=== PATIENT | female | born 1935 | race Caucasian/White ===

== ENCOUNTER → 2019-12-16 09:17 | Outpatient (REF) | payer MEDICARE, SELFPAY ==
--- NOTE | 2019-12-16 | NM_ITS ---
Lexiscan Myocardial perfusion study Indication: Shortness of breath, history of nonobstructive coronary disease, assess for ischemia Technique: The patient was brought in for a Lexiscan perfusion study on 12/16/2019 and was injected 0.4 mg of Lexiscan intravenously. Within a minute of this injection 30 mCi of sestamibi was given intravenously. Images were obtained using the SPECT gamma camera interlaced with the gating device. Images were obtained in supine position. Resting perfusion study was performed on 12/17/2019. Patient was administered 30 mCi of sestamibi intravenously at rest. Images were then obtained in supine position. Total DLP 83mGy-cm. Images were processed with the software and compared side to side in short axis, horizontal long axis and vertical long axis views. Findings: Raw acquisition was reviewed. Left arm was by the patient's side. The stress perfusion study showed mildly decreased tracer uptake along the basal inferolateral wall. With CT attenuation correction, this improves significantly suggestive of soft tissue attenuation artifact. The gated study shows normal LV systolic function with calculated LVEF of > 75%. LV cavity is normal in size. The gated study shows normal wall thickening and contraction of segments. Resting study shows no significant perfusion abnormality. Gating at rest reveals normal wall motion with ejection fraction at > 75%. The findings are consistent with no definite reversible or fixed perfusion abnormality. NM/NM tung perf SPECT rest & str Impression: 1. Myocardial perfusion imaging study shows likely normal myocardial perfusion. No definitive evidence of any ischemia or infarction. 2. Gated LVEF is > 75%. 3. Transient ischemic dilatation not present. EKG component of the test reported separately.
--- NOTE | 2019-12-16 09:30 | CA_ITS ---
Acquisition Time: 2019-12-16 09:27:52 Total Exercise Time: 00:02:00 Test Indications: Abnormal Treadmill Test Medications: CARDIZEM FUROSEMIDE LOSARTAN LEVOTHYROXINE METOPROLOL ELIQUIS Protocol: LEXISCAN Max HR: 110 BPM 81% of Pred: 135 BPM Max BP: 128/073 mmHG Max Work Load: 1.0 METS Pharmacological stress test using Lexiscan while sitting and kicking her feet. Tolerated well. Reports SOB, and no other anginal sx. Pt c/o frontal lobe headache, sx reversed with Aminophyline. EKG with occasional PVC's. Non-diagnostic for ischemia. Nuclear images to follow. Normotensive response to test. Test reviewed with Dr. Larios. Referred By: Anjali Verdugo Overread By: Adin Stark
== END ==
LOC: HO.CARD 09:17
PROVIDERS: Visit Provider Nurse Practitioner Family
DX: I48.0 Paroxysmal atrial fibrillation (principal); I25.10 Atherosclerotic heart disease of native coronary artery without angina pectoris; I11.9 Hypertensive heart disease without heart failure; E78.5 Hyperlipidemia, unspecified; R06.02 Shortness of breath; Z79.02 Long term (current) use of antithrombotics/antiplatelets; Z79.899 Other long term (current) drug therapy
CPT/HCPCS: 78452; 93017; A9500; J0280; J2785

== ENCOUNTER → 2019-12-20 10:37 | Outpatient (BNVA) | payer MEDICARE, SELFPAY | PROVIDERS: PCP Internal Medicine; Referring Provider Internal Medicine; Visit Provider Nurse Practitioner Family | DX: I48.0 Paroxysmal atrial fibrillation (principal); R06.02 Shortness of breath; I25.10 Atherosclerotic heart disease of native coronary artery without angina pectoris; Z79.899 Other long term (current) drug therapy | CPT/HCPCS: 99214 ==

== ENCOUNTER 2020-05-21 09:15 | Outpatient (REF) | payer MEDICARE, SELFPAY ==
--- NOTE | ~2020-05-21 | XR_ITS ---
EXAMINATION: XR CHEST CLINICAL INFORMATION: Shortness of breath COMPARISON: 11/23/2011 TECHNIQUE: 2 views of the chest were obtained. FINDINGS: There is no evidence of acute parenchymal disease, pneumothorax, or pleural effusion. Heart normal size. No evidence of pulmonary edema. There is a 3.8 cm retrocardiac density present which may represent a small hiatal hernia; however, nodular density is not excluded and if there is no recent imaging for comparison would recommend chest CT. XR/XR chest 2V IMPRESSION: No acute inflammatory process identified. Retrocardiac density which may represent small hiatal hernia; however, density of other etiology not excluded and if there are no recent studies to compare to show if there is stability or not, would recommend CT of the chest for further evaluation.
[2020-05-21 12:31] LABS: Hematocrit 44.5 % (37-47); Hemoglobin 14.9 g/dl (12.0-16.0); Mean Corpuscular HGB Conc 33.5 g/dl (31.0-35.0); Mean Corpuscular Hemoglobin 29.4 pg (27.0-33.0); Mean Corpuscular Volume 87.8 fL (80-98); Platelet Count 276 X10*3/uL (160-400); Red Blood Count 5.07 X10*6/uL (4.20-5.50); White Blood Count 11.2 X10*3/uL (4.8-10.8)
[2020-05-21 12:50] LABS: Anion Gap 18 (12-20); Blood Urea Nitrogen 29 mg/dL (9-16); Calcium 9.5 mg/dL (8.4-10.2); Carbon Dioxide 22 mmol/L (22-29); Chloride 101 mmol/L (96-108); Estimated Glomerular Filt Rate 59; Glucose Random 99 mg/dL (60-115); Potassium 5.1 mmol/L (3.3-5.1); Sodium 136 mmol/L (135-145)
[2020-05-21 12:52] LABS: B Type Natriuretic Peptide 119 pg/mL (<100)
== END 2020-05-21 09:16 | disposition home or self-care (01) ==
LOC: HO.LAB 09:15
PROVIDERS: PCP Internal Medicine; Visit Provider Internal Medicine Cardiovascular Disease
DX: I48.0 Paroxysmal atrial fibrillation (principal); R06.02 Shortness of breath; Z79.01 Long term (current) use of anticoagulants; Z79.899 Other long term (current) drug therapy
CPT/HCPCS: 36415; 71046; 80048; 83880; 85027; 99212

== ENCOUNTER → 2020-07-08 13:55 | Outpatient (BNVA) | payer MEDICARE, SELFPAY | PROVIDERS: PCP Registered Nurse; Visit Provider Internal Medicine | DX: R06.02 Shortness of breath (principal); I48.0 Paroxysmal atrial fibrillation; E03.9 Hypothyroidism, unspecified; I25.10 Atherosclerotic heart disease of native coronary artery without angina pectoris | CPT/HCPCS: 99202 ==

== ENCOUNTER → 2020-07-10 13:54 | Outpatient (REF) | payer MEDICARE, SELFPAY ==
--- NOTE | 2020-07-10 13:59 | CA_ITS ---
Transthoracic Echocardiogram Patient (Last, First, Middle): Tiki Murdock S Gender: Female Date of : 1935 Age: 85 Procedure Date: 07/10/2020 Procedure Type: Transthoracic Echocardiogram Location: OP Height: 157.48 cm Weight: 86.64 kg BSA: 1.87 m2 Heart Rate: bpm BP: 118 / 80 mmHg Helpdesk Technician: MERVIN Referring MD: Davey Bermeo MD Symptoms: R06.02 - Shortness of breath Study Quality: Good Conclusions: - Normal left ventricular size and systolic function. There is mildly increased left ventricular wall thickness. - E/E prime ratio is between 8 and 15 consistent with indeterminate filling pressures. - Normal right ventricular cavity size and systolic function. - The left atrium is mildly dilated. Findings Left Ventricle Normal left ventricular size and systolic function. There is mildly increased left ventricular wall thickness. The visually estimated ejection fraction is between 65-70%. There is no evidence of regional wall motion abnormalities. Abnormal diastolic function is noted. Spectral Doppler is indicative of an impaired relaxation filling pattern. E/E prime ratio is between 8 and 15 consistent with indeterminate filling pressures. Right Ventricle Normal right ventricular cavity size and systolic function. Atria The left atrium is mildly dilated. The right atrium is normal in size. Aortic Valve Normal aortic valve structure and function. There is no aortic valve stenosis. There is no aortic valve regurgitation. Mitral Valve Normal mitral valve structure and function. There is trace mitral valve regurgitation. There is no mitral valve stenosis. Pulmonic Valve The pulmonic valve is likely normal. Tricuspid Valve Normal tricuspid valve structure and function. There is mild tricuspid valve regurgitation. Normal right atrial pressure. There is no evidence of pulmonary hypertension. Great Vessels There is mild dilatation of the ascending aorta. The visualized portions of the pulmonary artery and branches are normal. Venous The inferior vena cava is normal in size and collapses greater than 50% with inspiration. Pericardium/Pleural There is no evidence of pericardial effusion. Prior Study Comparison No significant change compared to prior study dated: 03/07/2019. Measurements 2D Linear Measurements IVSd: 1.05 0.6-0.9/0.6-1.0 cm LVIDd: 2.65 3.9-5.3/4.2-5.9 cm LVIDd Index: 1.42 2.4-3.2/2.2-3.1 cm/m2 LVIDs: 1.85 2.0-3.6 cm LVPWd: 1.08 0.7-1.1 cm Ao Root: 3.20 2.1-3.5 cm LA Diam: 3.10 2.7-3.8/3.0-4.0 cm LAIDs Index: 1.66 1.5-2.3 cm/m2 LV Mass: 94.23 67-162/88-224 g LV Mass Index: 50.39 43-95/49-115 g/m2 LVOT Diam: 2.20 3.0+(-)1.3 cm 2D Systolic Function EF 4C: 60.80 >55% EF 2C: 63.20 >55% Mitral Valve MV Pk E: 0.64 MV PK A: 0.75 MV Decel Time: 366.00 E/A: 0.80 E'Lateral: 6.53 E'Medial: 3.92 E/E' Med: 16.30 E/E' Lat: 9.80 PHT: 107.00 MVA PHT: 2.06 Decel [place]: 1.74 Aortic Valve AoV Pk Jose: 1.19 AoV Mn Jose: 0.83 AoV VTI: 0.28 AoV Pk Grad: 6.00 Aov Mn Grad: 3.00 BALJIT Cont.VTI: 3.22 LVOT LVOT Pk Jose: 0.97 LVOT Mn Jose: 0.62 LVOT VTI: 0.24 LVOT Pk Grad: 4.00 LVOT Mn Grad: 2.00 LVOT Diam: 2.20 LVOT Area: 3.80 Diastolic Function MV Pk E: 0.64 MV Pk A: 0.75 E/A: 0.80 E'Medial: 3.92 E/E' Med: 16.30 E' Laterial: 6.53 E/E' Lat: 9.80 Tricuspid Valve TR Pk Jose: 2.40 TR Pk Grad: 23.00 RA Press: 3.00 RVSP: 26.00 Great Vessels Aorta Ao Root-2D: 3.20 2.0-3.7 cm Ao Asc: 3.50 2.1-3.4 cm Ao Arch: 2.80 Updated in Other Vendor System with Status of Final Bola Larios MD electronically signed on 07/13/2020 2:21:32 PM with status of Final
== END ==
LOC: HO.CARD 13:54
PROVIDERS: Visit Provider Internal Medicine Cardiovascular Disease
DX: R06.02 Shortness of breath (principal)
CPT/HCPCS: 93306

== ENCOUNTER → 2020-07-16 14:06 | Outpatient (BNVA) | payer MEDICARE, SELFPAY | PROVIDERS: PCP Internal Medicine; Visit Provider Internal Medicine Cardiovascular Disease | DX: I48.0 Paroxysmal atrial fibrillation (principal); R06.02 Shortness of breath | CPT/HCPCS: 99212 ==

== ENCOUNTER → 2021-01-11 09:12 | Outpatient (BNVA) | payer MEDICARE, SELFPAY | PROVIDERS: Visit Provider Internal Medicine Cardiovascular Disease | DX: I25.10 Atherosclerotic heart disease of native coronary artery without angina pectoris (principal); I48.0 Paroxysmal atrial fibrillation; R06.02 Shortness of breath | CPT/HCPCS: 93005; 99212 ==

== ENCOUNTER → 2022-03-07 14:47 | Outpatient (BNVA) | payer MEDICARE, SELFPAY | PROVIDERS: Visit Provider Internal Medicine Cardiovascular Disease | DX: I48.0 Paroxysmal atrial fibrillation (principal); I25.10 Atherosclerotic heart disease of native coronary artery without angina pectoris; Z79.01 Long term (current) use of anticoagulants; Z79.899 Other long term (current) drug therapy | CPT/HCPCS: 93005; 99212 ==

== ENCOUNTER 2023-03-09 15:04 | Outpatient (AMB) | payer MEDICARE, SELFPAY ==
--- NOTE | 2023-03-09 15:08 | MHC.OFFVIS ---
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 She has been doing very well. She denies any symptoms of exertional chest pain. However she says she has been getting low more short of breath and fatigue, she has not been exercising as much since she gave up her horses. However she is able to live independently. Denies any orthopnea, PND, leg edema. No lightheadedness, syncope. No prolonged palpitation irregular heartbeat. No bleeding issues or neurologic events. [facility] Medical History Shortness of breath Coronary artery arteriosclerosis Osteoarthritis Hypothyroid Paroxysmal A-fib HTN (hypertension) Surgical History History of cardiac cath (~11/2011) Family History Father No problems noted. Mother No problems noted. Brother No problems noted. Social History Alcohol intake: never Patient Tobacco Use Status: Never used Tobacco Review of Systems Const Denies chills, Denies fatigue, Denies fever(s), Denies frequent falls, Denies weakness, Denies weight gain and Denies weight loss ENT Denies dizziness Card Denies chest pain, Denies leg edema, Denies lightheadedness, Denies palpitations, Denies dyspnea, Denies dyspnea on exertion, Denies orthopnea and Denies other (loss of consciousness) Resp Denies cough, Denies dyspnea and Denies dyspnea on exertion GI Denies hematochezia and Denies change in stool character Musc Denies abnormal gait, Denies muscle weakness, Denies numbness, Denies radiating pain into limb and Denies tingling Neuro Denies abnormal gait, Denies dizziness, Denies frequent falls, Denies numbness, Denies tingling and Denies weakness Endo Denies fatigue and Denies palpitations Physical Exam Vital Signs: Last Vital Signs Pulse 78 03/09/23 15:09 BP 120/82 03/09/23 15:09 BMI result Body Mass Index 34.3 Const General: cooperative, comfortable, no acute distress, alert and awake Nutritional Appearance: obese Orientation/consciousness: patient oriented x3 Limitations: no limitations Neck Neck: Yes trachea midline, Yes supple and Yes no JVD Resp Effort & Inspection: normal respiratory effort Auscultation: clear to auscultation bilaterally and diminished lung sounds Cardio Jugular venous distension: no JVD Palpation: normal PMI Rate: regular rate Rhythm: regular rhythm Heart sounds: S1 normal heart sound present and S2 normal heart sound present Skin General skin exam: no rashes or lesions noted Neuro General: patient oriented x3 and no focal motor deficits Office Procedures EKG Details: EKG shows normal sinus rhythm with normal EKG [id number], Complete Assessment & Plan Assessment & Plan (1) Paroxysmal A-fib: Comment: CONTROLLED , BEING FOLLOWED BY CARDIOLOGY Code(s): I48.0 - Paroxysmal atrial fibrillation Plan: Paroxysmal atrial fibrillation currently on dual therapy with metoprolol and Cardizem with no obvious clinical recurrence at this point time. Continue the same. Avoidance of stimulants was discussed. Continue full oral anticoagulation, currently on Eliquis 5 mg b.i.d.. Semi annual renal function test should be pursued at least. Advised to call me with any new symptoms. (2) Coronary artery arteriosclerosis: Comment: mild nonobstructive in 2011 Code(s): I25.10 - Atherosclerotic heart disease of [place] coronary artery without angina pectoris Plan: Prior CAD without any new clinical symptoms that requires any further workup. Continue maintain activity level as tolerated. Blood pressure is well optimized currently on full oral anticoagulation Eliquis and will therefore avoid additional antiplatelet agent. Target goal LDL less than 100 mg/dL. Follow up in the clinic in 1 year's time, sooner p.r.n.. Thank you for allowing me to partake in her care Orders: Orders Basic Metabolic Panel Today I48.0 - Paroxysmal atrial fibrillation Coding Level of Care Code Est Pt Level 4 (16161) Diagnoses Paroxysmal A-fib I48.0 Coronary artery arteriosclerosis I25.10 CPT Codes EKG - CPT: 50888-[id number], Complete ([id number])
[2023-03-09 15:09] VITALS: BP 120/82; PULSE 78; BMI 34.3
== END 2023-03-09 15:44 | disposition home or self-care (01) ==
PROVIDERS: Visit Provider Internal Medicine Cardiovascular Disease
DX: I48.0 Paroxysmal atrial fibrillation (principal); I25.10 Atherosclerotic heart disease of native coronary artery without angina pectoris
CPT/HCPCS: 93010; 99214

== ENCOUNTER → 2023-03-09 15:04 | Outpatient (BNVA) | payer MEDICARE, SELFPAY | PROVIDERS: Visit Provider Internal Medicine Cardiovascular Disease | DX: I48.0 Paroxysmal atrial fibrillation (principal); I25.10 Atherosclerotic heart disease of native coronary artery without angina pectoris | CPT/HCPCS: 93005; 99212 ==

== ENCOUNTER 2023-04-12 14:59 | Outpatient (AMB) | payer MEDICARE, SELFPAY ==
[2023-04-12 15:02] VITALS: BP 130/70; PULSE 69; BMI 34.4
--- NOTE | 2023-04-12 15:02 | MHC.OFFVIS ---
Intake Vital Signs 04/12/23 15:02 Height 5 ft 2 in Weight 187 lb 13.341 oz BMI 34.4 BP 130/70 Blood Pressure Location Lt brachial Position Sitting Pulse 69 Intake Visit Reasons: follow-up c/o sob Intake Note: pt its here in the office for a f/up c/o SOB pt still have the sob, light headed and nausea. 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 She said over the last two weeks she has been having an increased in shortness of breath on exertion and chronic post nasal drip. States she used to be able to bring the trash out and now feels significantly short of breath with weakness. She denies any palpitations, lightheadedness, or chest pain. She has been doing physical therapy for her hips and did well with that. No concerns for bleeding at this time. [facility] Medical History Shortness of breath Coronary artery arteriosclerosis Osteoarthritis Hypothyroid Paroxysmal A-fib HTN (hypertension) Surgical History History of cardiac cath (~11/2011) Family History Father No problems noted. Mother No problems noted. Brother No problems noted. Social History Alcohol intake: never Patient Tobacco Use Status: Never used Tobacco Review of Systems Const Denies chills, Reports fatigue, Denies fever(s), Denies frequent falls, Reports weakness, Denies weight gain and Denies weight loss ENT Reports dizziness Card Denies chest pain, Denies leg edema, Reports lightheadedness, Reports palpitations, Reports dyspnea and Reports dyspnea on exertion Resp Denies cough, Reports dyspnea and Reports dyspnea on exertion GI Denies hematochezia Musc Denies abnormal gait, Denies muscle weakness, Denies numbness, Denies radiating pain into limb and Denies tingling Neuro Denies abnormal gait, Reports dizziness, Denies frequent falls, Denies numbness, Denies tingling and Reports weakness Endo Reports fatigue and Reports palpitations Physical Exam Vital Signs: Last Vital Signs Pulse 69 04/12/23 15:02 BP 130/70 04/12/23 15:02 BMI result Body Mass Index 34.4 Const General: healthy appearing and no acute distress Orientation/consciousness: patient oriented x3 HEENT Head: Yes normal to inspection Eyes General: appearance normal, both eyes and all related structures Neck Neck: Yes normal visual inspection Chest Chest palpation & inspection: normal inspection of the chest Resp Effort & Inspection: normal respiratory effort Auscultation: clear to auscultation bilaterally Cardio Jugular venous distension: no JVD Palpation: normal PMI Rate: regular rate Rhythm: regular rhythm Heart sounds: S1 normal heart sound present, S2 normal heart sound present, no click, no gallops, no murmurs and no rubs GI Inspection: Yes normal to inspection Palpation (GI): Soft to palpation Skin General skin exam: no rashes or lesions noted Neuro General: patient oriented x3 Extrem General: Yes normal to inspection Psych Appearance: grossly normal Office Procedures EKG Details: EKG today. Sinus Rhythm. Rate 69 bpm. QRS 72ms. QTc 441ms. [id number], Complete Assessment & Plan Assessment & Plan (1) Shortness of breath: Comment: WANTED TO DO PULMONARY FUNCTION TEST BUT NOTED ABOVE IN HPI, SHE WAS NOT ABLE TO PERFORM ADEQUATE EFFORTS. IT WAS MAINLY DUE TO POOR QUAD IN A BRISCOE OF EXPIRATORY EFFORT. SO WE WOULD JUST GO BY CLINICAL JUDGMENT. I DO NOT THINK SHE HAS ANY SIGNIFICANT AMOUNT OF THE COPD, BUT MAY HAVE SOME RESTRICTIVE DISORDER RELATED TO HER BEING OVERWEIGHT. HER DYSPNEA ON EXERTION THAT SHE IS EXPERIENCING MORE IN THE PAST FEW MONTHS, SEEMS TO BE DUE TO FOLLOWING FACTORS: WEIGHT GAIN, POOR PHYSICAL CONDITIONING, ATRIAL FIBRILLATION AND MILD DIASTOLIC DYSFUNCTION. TX I STARTED HER ON INCENTIVE SPIROMETRY FOR DEEP BREATHING EXERCISES. ADVISED HER TO DO BREATHING EFFORTS 3 TIMES A DAY. ADVISED HER TO LOSE ABOUT 5-10 LB OF WEIGHT. WILL RECHECK HER IN 4-5 WEEKS, AT THAT TIME WE WILL TRIED TO HAVE HER DO AN EVERY [facility] DID PULMONARY FUNCTION TEST IF POSSIBLE. Code(s): R06.02 - Shortness of breath Plan: She has seen pulmonary in the past and struggled to do the PFT. Will send her for a pharmacological stress test with nuclear images. some lab work, and echocardiogram. Her last echo was 06/2020 with normal LV size and systtolic function. mildly increase LV thickness. E/E prime ratio 8 to 15. LA midlly dilated. Mibi in 11/2019 showed likely normal myocardial perfusion. (2) Paroxysmal A-fib: Comment: CONTROLLED , BEING FOLLOWED BY CARDIOLOGY Code(s): I48.0 - Paroxysmal atrial fibrillation Plan: EKG today shows normal sinus rhythm. On eliquis 5mg BID with no bleeding concerns. She is on diltiazem and metoprolol succinate for rate control. (3) HTN (hypertension): Code(s): I10 - Essential (primary) hypertension Plan: Blood pressure today is within limits Coding Level of Care Code Tele Est Pt Level 3 (56690) Diagnoses Shortness of breath R06.02 Paroxysmal A-fib I48.0 HTN (hypertension) I10 CPT Codes EKG - CPT: 96345-[id number], Complete ([id number])
== END 2023-04-12 15:53 | disposition home or self-care (01) ==
PROVIDERS: Visit Provider Nurse Practitioner
DX: R06.02 Shortness of breath (principal); I48.0 Paroxysmal atrial fibrillation; I10 Essential (primary) hypertension
CPT/HCPCS: 93010; 99213

== ENCOUNTER → 2023-04-12 14:59 | Outpatient (BNVA) | payer MEDICARE, SELFPAY | PROVIDERS: Visit Provider Nurse Practitioner | DX: I48.0 Paroxysmal atrial fibrillation (principal); I10 Essential (primary) hypertension; R06.02 Shortness of breath | CPT/HCPCS: 93005 ==

== ENCOUNTER → 2023-05-18 08:33 | Outpatient (REF) | payer MEDICARE, SELFPAY ==
--- NOTE | ~2023-05-18 | NM_ITS ---
Myocardial perfusion study Indication: Shortness of breath Technique: The patient was brought in for a Lexiscan perfusion study on 05/18/2023. Patient performed low-level exercise and was injected 0.4 mg of Lexiscan intravenously. Within a minute of injection, 30 mCi of sestamibi was given intravenously. Images were obtained using the SPECT gamma camera interlaced with the gating device. Images were obtained in supine position. Resting perfusion study was performed on 05/22/2023. Patient was administered 30 mCi of sestamibi intravenously at rest. Images were then obtained in supine position. Images obtained with and without CT attenuation. Total DLP 123 mGy-cm Images were processed with the software and compared side to side in short axis, horizontal long axis and vertical long axis views. Findings: The stress perfusion study showed both attenuated as well as non attenuated corrected images show normal uptake of radiotracer in all segments of LV myocardium. There is suggestion of left ventricle hypertrophy.. The gated study shows normal LV systolic function with calculated LVEF of greater than 70%. LV cavity is normal in size. The gated study shows normal systolic wall thickening and contraction of segments. Resting study shows no change in perfusion pattern compared to stress perfusion study. Gating at rest reveals normal systolic wall motion with ejection fraction at greater than 70%. The findings are consistent with normal myocardial perfusion. NM/NM cardiolite stress test Impression: 1. Myocardial perfusion imaging study shows normal myocardial perfusion 2. Gated LVEF is greater than 70% 3. Transient ischemic dilatation not present EKG is nondiagnostic for ischemia
--- NOTE | 2023-05-18 08:40 | CA_ITS ---
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 The calculated ejection fraction is 71% by biplane method. - There is severe septal asymmetric hypertrophy. - No obvious valvular pathology seen on this study. Findings Left Ventricle Normal left ventricular cavity size. The left ventricular systolic function is hyperdynamic. The calculated ejection fraction is 71% by biplane method. There is no dynamic left ventricular outflow tract obstruction. Evidence suggests grade I (mild) diastolic dysfunction. There is severe septal asymmetric hypertrophy. LV peak GLS -17.6%. Right Ventricle Normal right ventricular cavity size and systolic function. Atria Both atria are normal in size. Aortic Valve There is a normal trileaflet aortic valve. There is no aortic valve stenosis. There is no aortic valve regurgitation. Mitral Valve There is mild mitral annular calcification. There is no mitral valve regurgitation. There is no mitral valve stenosis. Pulmonic Valve The pulmonic valve is likely normal. Tricuspid Valve There is mild tricuspid valve regurgitation. There is no evidence of pulmonary hypertension. Great Vessels The asc aorta is normal in size. Venous The inferior vena cava is normal in size and collapses greater than 50% with inspiration. Pericardium/Pleural There is no evidence of pericardial effusion. Prior Study Comparison No significant change compared to prior study dated: 07/10/2020. Recommendations, Care & Conclusions No obvious valvular pathology seen on this study. Measurements 2D Linear Measurements IVSd: 1.22 0.6-0.9/0.6-1.0 cm LVIDd: 3.95 3.9-5.3/4.2-5.9 cm LVIDd Index: 2.14 2.4-3.2/2.2-3.1 cm/m2 LVIDs: 2.30 2.0-3.6 cm LVPWd: 0.91 0.7-1.1 cm LA Diam: 3.70 2.7-3.8/3.0-4.0 cm LAIDs Index: 2.00 1.5-2.3 cm/m2 LV Mass: 169.88 67-162/88-224 g LV Mass Index: 91.83 43-95/49-115 g/m2 LVOT Diam: 2.10 3.0+(-)1.3 cm 2D Systolic Function EF 4C: 71.10 >55% EF 2C: 70.40 >55% EF BiP: 70.60 >55% Mitral Valve MV Pk E: 0.72 MV PK A: 1.02 MV Decel Time: 218.00 E/A: 0.70 E'Lateral: 6.74 E'Medial: 3.81 E/E' Med: 19.00 E/E' Lat: 10.70 PHT: 64.00 MVA PHT: 3.44 Decel [place]: 3.33 Aortic Valve AoV Pk Jose: 1.30 AoV Mn Jose: 1.00 AoV VTI: 0.31 AoV Pk Grad: 7.00 Aov Mn Grad: 4.00 BALJIT Cont.VTI: 2.32 LVOT LVOT Pk Jose: 1.01 LVOT Mn Jose: 0.68 LVOT VTI: 0.21 LVOT Pk Grad: 4.00 LVOT Mn Grad: 2.00 LVOT Diam: 2.10 LVOT Area: 3.46 Diastolic Function MV Pk E: 0.72 MV Pk A: 1.02 E/A: 0.70 E'Medial: 3.81 E/E' Med: 19.00 E' Laterial: 6.74 E/E' Lat: 10.70 Right Ventricle TAPSE (mm): 21.20 TVS' Jose: 10.30 Tricuspid Valve TR Pk Jose: 2.48 TR Pk Grad: 25.00 RA Press: 3.00 RVSP: 28.00 Great Vessels Aorta Sinus of Valsalva: 3.15 2.0-3.[address] [place]: 2.21 1.7-3.4 cm Ao Asc: 3.50 2.1-3.4 cm Updated in Other Vendor System with Status of Final Enzo Aiken MD electronically signed on 05/20/2023 11:10:36 AM with status of Final
--- NOTE | 2023-05-18 08:40 | CA_ITS ---
Acquisition Time: 2023-05-18 09:51:05 Total Exercise Time: 00:02:00 Test Indications: AFIB SOB Medications: SEE H Protocol: LEXISCAN Max HR: 113 BPM 85% of Pred: 132 BPM Max BP: 144/076 mmHG Max Work Load: 1.0 METS Pharmacological stress test with lexiscan injection while sititng and kicking her legs, without anginal symtpoms, without arrhythmais, with normotensive response to injeciton, with nondiagnsoitiic EKGs. Aminophylline 75mg IVP given to reverse Lexiscan. Nuclear images pending. Test reviewed with Dr. Aiken. Referred By: Cassidy Goodson Overread By: Cassidy Goodson
== END ==
LOC: HO.CARD 08:33
PROVIDERS: Visit Provider Nurse Practitioner
DX: R06.02 Shortness of breath (principal)
CPT/HCPCS: 78452; 93017; 93306; 93356; A9500; J0280; J2785

== ENCOUNTER → 2023-05-18 08:40 | Outpatient (BNV) | payer MEDICARE, SELFPAY | PROVIDERS: Visit Provider Nurse Practitioner | DX: I42.2 Other hypertrophic cardiomyopathy (principal); I34.81 Nonrheumatic mitral (valve) annulus calcification | CPT/HCPCS: 78452; 93016; 93018; 93350; 93356 ==

== ENCOUNTER 2023-06-08 12:52 | Outpatient (AMB) | payer MEDICARE, SELFPAY ==
[2023-06-08 13:12] VITALS: BP 120/68; PULSE 72; BMI 33.8
--- NOTE | 2023-06-08 13:12 | MHC.OFFVIS ---
Intake Vital Signs 06/08/23 13:12 Height 5 ft 2 in Weight 185 lb BMI 33.8 BP 120/68 Blood Pressure Location Lt brachial Position Sitting Pulse 72 Intake Visit Reasons: f/up after testing Intake Note: follow up after testing pt states is tired and has sob does not have energy while walking Allergies No Known Allergies Allergy (Verified 01/11/21 09:23) Medication List - Last Reconciled 06/08/23 by Cassidy Goodson NP acetaminophen ER (Tylenol Arthritis Pain) 650 mg PO Q12H apixaban (Eliquis) 5 mg PO BID diltiazem HCl ER 120 mg PO DAILY furosemide 20 mg PO DAILY levothyroxine 100 mcg PO DAILY losartan 100 mg PO DAILY metoprolol succinate ER 50 mg PO BID HPI HPI Comments History of Present Illness Details 88-year-old female presents today for a follow-up after testing. She reports she is doing about the same as last time. She states she is still getting short of breath easily and fatigue. She used to be much more active but since no longer tending to her houses it has decreased. She reports no palpitations, chest discomforts, bleeding concerns, or swelling. She reports compliance with her medications. [facility] Medical History Shortness of breath Coronary artery arteriosclerosis Osteoarthritis Hypothyroid Paroxysmal A-fib HTN (hypertension) Surgical History History of cardiac cath (~11/2011) Family History Father No problems noted. Mother No problems noted. Brother No problems noted. Social History Alcohol intake: never Patient Tobacco Use Status: Never used Tobacco Review of Systems Const Denies weakness ENT Denies dizziness Card Denies chest pain, Denies chest pain with activity, Denies syncope, Denies rapid heart rate, Denies pedal edema, Denies edema, Denies leg edema, Denies lightheadedness, Denies palpitations, Denies dyspnea, Denies dyspnea on exertion and Denies orthopnea Resp Denies cough, Denies dyspnea and Denies dyspnea on exertion GI Denies hematochezia and Denies change in stool character Musc Denies abnormal gait, Denies muscle cramps, Denies muscle weakness, Denies numbness, Denies radiating pain into limb and Denies tingling Neuro Denies abnormal gait, Denies dizziness, Denies syncope, Denies numbness, Denies tingling and Denies weakness Endo Denies palpitations Physical Exam Vital Signs: BMI result Body Mass Index 33.8 Const General: healthy appearing and no acute distress Orientation/consciousness: patient oriented x3 HEENT Head: Yes normal to inspection Eyes General: appearance normal, both eyes and all related structures Neck Neck: Yes normal visual inspection Chest Chest palpation & inspection: normal inspection of the chest Resp Effort & Inspection: normal respiratory effort Auscultation: clear to auscultation bilaterally Cardio Jugular venous distension: no JVD Palpation: normal PMI Rate: regular rate Rhythm: regular rhythm Heart sounds: S1 normal heart sound present, S2 normal heart sound present, no click, no gallops, no murmurs and no rubs GI Inspection: Yes normal to inspection Palpation (GI): Soft to palpation Skin General skin exam: no rashes or lesions noted Neuro General: patient oriented x3 Extrem General: Yes normal to inspection Psych Appearance: grossly normal Assessment & Plan Assessment & Plan (1) Shortness of breath: Comment: WANTED TO DO PULMONARY FUNCTION TEST BUT NOTED ABOVE IN HPI, SHE WAS NOT ABLE TO PERFORM ADEQUATE EFFORTS. IT WAS MAINLY DUE TO POOR QUAD IN A BRISCOE OF EXPIRATORY EFFORT. SO WE WOULD JUST GO BY CLINICAL JUDGMENT. I DO NOT THINK SHE HAS ANY SIGNIFICANT AMOUNT OF THE COPD, BUT MAY HAVE SOME RESTRICTIVE DISORDER RELATED TO HER BEING OVERWEIGHT. HER DYSPNEA ON EXERTION THAT SHE IS EXPERIENCING MORE IN THE PAST FEW MONTHS, SEEMS TO BE DUE TO FOLLOWING FACTORS: WEIGHT GAIN, POOR PHYSICAL CONDITIONING, ATRIAL FIBRILLATION AND MILD DIASTOLIC DYSFUNCTION. TX I STARTED HER ON INCENTIVE SPIROMETRY FOR DEEP BREATHING EXERCISES. ADVISED HER TO DO BREATHING EFFORTS 3 TIMES A DAY. ADVISED HER TO LOSE ABOUT 5-10 LB OF WEIGHT. WILL RECHECK HER IN 4-5 WEEKS, AT THAT TIME WE WILL TRIED TO HAVE HER DO AN EVERY [facility] DID PULMONARY FUNCTION TEST IF POSSIBLE. Code(s): R06.02 - Shortness of breath (2) Paroxysmal A-fib: Comment: CONTROLLED , BEING FOLLOWED BY CARDIOLOGY Code(s): I48.0 - Paroxysmal atrial fibrillation (3) HTN (hypertension): Code(s): I10 - Essential (primary) hypertension Plan Echocardiogram without significant changes from prior. Nuclear stress test shows normal myocardial perfusion. On metoprolol and diltiazem for rate control. Avoid stimulants. On eliquis 5mg BID. Blood pressure controlled. She is willing to see pulmonary again related to a work up for her respiratory status and shortness of breath. She is going to try to increase her activities best she can. Coding Level of Care Code Est Pt Level 3 (96704) Diagnoses Shortness of breath R06.02 Paroxysmal A-fib I48.0 HTN (hypertension) I10
== END 2023-06-08 13:51 | disposition home or self-care (01) ==
PROVIDERS: Visit Provider Nurse Practitioner
DX: R06.02 Shortness of breath (principal); I48.0 Paroxysmal atrial fibrillation; I10 Essential (primary) hypertension
CPT/HCPCS: 99213

== ENCOUNTER → 2023-06-08 12:52 | Outpatient (BNVA) | payer MEDICARE, SELFPAY | PROVIDERS: Visit Provider Nurse Practitioner | DX: R06.02 Shortness of breath (principal); I48.0 Paroxysmal atrial fibrillation; I10 Essential (primary) hypertension | CPT/HCPCS: 99212 ==

== ENCOUNTER 2023-08-17 13:18 | Outpatient (AMB) | payer MEDICARE, SELFPAY ==
[2023-08-17 13:31] VITALS: PULSE 75; O2SAT 95; BMI 33.3
--- NOTE | 2023-08-17 13:31 | A.OFFVIS_ITS ---
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 The patient is an 88 year woman with a known history of atrial fibrillation was been complaining of increasing dyspnea on exertion. To the point that is hard for her to even go and get her mail at her mailbox. She does use a cane. Denies any chest tightness or wheezing. Denies any coughing. Just breathlessness. She has been seen by Cardiology already. She is on rate-controlling medications and also has been on anticoagulation she has been tolerating it well. She did try to do pulmonary function studies some point and she had a hard time. I also explained to her that we have to be careful with respiratory inhalers because of her cardiac issues. During the visit we did go for brief walking oximetry. It was evident the patient became very fatigued and complained of weakness of her lower extremities along with achiness. Could be an atypical form of claudication. The patient's symptoms did get better after resting while sitting. Seems like she would benefit from a walker. I did talk to the patient and also her daughter about using standing walker instead to minimizing neck strain specially with her bad arthritis of the neck. The patient will consider it. Also, she continues to have the heaviness and weakness and discomfort of the lower extremities while ambulating then should be further evaluated for claudication. In the meantime from a respiratory status will will trial Incruse as an inhaler to see if this provide her some relief. The patient does not have a history of glaucoma and hopefully we can try for a month and see specially since overnight able to do pulmonary function studies. The patient should also have a chest x- ray. Will follow-up in 2 3 months. If she has any issues or concerns she can always call the office for an earlier assessment. [facility] Medical History Shortness of breath Coronary artery arteriosclerosis Osteoarthritis Hypothyroid Paroxysmal A-fib HTN (hypertension) Surgical History History of cardiac cath (~11/2011) Family History Father No problems noted. Mother No problems noted. Brother No problems noted. Social History Alcohol intake: never Patient Tobacco Use Status: Never used Tobacco Review of Systems Const Denies weakness ENT Denies dizziness Card Denies chest pain and Reports dyspnea on exertion Resp Denies cough, Reports dyspnea on exertion and Denies wheezing GI Denies hematochezia and Denies change in stool character Musc Denies abnormal gait, Reports myalgias, Denies muscle cramps, Reports muscle weakness, Denies numbness, Denies radiating pain into limb and Denies tingling Skin/Breast Denies rash Neuro Denies abnormal gait, Denies dizziness, Denies numbness, Denies tingling and Denies weakness Aller/Immun Denies wheezing Physical Exam Vital Signs: Last Vital Signs Pulse 75 08/17/23 13:31 Pulse Ox 95 08/17/23 13:31 Oxygen Delivery Method Room Air 08/17/23 13:31 BMI result Body Mass Index 33.3 Const General: healthy appearing and no acute distress Orientation/consciousness: patient oriented x3 HEENT Head: Yes normal to inspection Eyes General: appearance normal, both eyes and all related structures Neck Neck: Yes normal visual inspection Chest Chest palpation & inspection: normal inspection of the chest Resp Effort & Inspection: normal respiratory effort Auscultation: clear to auscultation bilaterally Cardio Rate: regular rate Rhythm: regular rhythm Heart sounds: S1 normal heart sound present, S2 normal heart sound present, no click and Gallop heart sound present GI Inspection: Yes normal to inspection Palpation (GI): Soft to palpation Skin General skin exam: no rashes or lesions noted Neuro General: patient oriented x3 Extrem General: Yes normal to inspection Psych Appearance: grossly normal Office Procedures 6 Minute Walk Time:: 13:50 SPO2 % at rest: 95 Pulse at rest: 75 SPO2 % during excercise: 93 Pulse during excercise: 92 SPO2 % after excercise: 95 Pulse after excercise: 89 Distance in yards walked: 120 Flor Score: 4 Performance Observations:: Tiki walked on level ground with the assistance of a cane, she walked on room air for the entire walk. She maintained her SPO2 93- 95%, no supplemental O2 needed. [id number] - 6 Minute Walk Assessment & Plan Assessment & Plan (1) Shortness of breath: Code(s): R06.02 - Shortness of breath Category: Medical Plan Likely multifactorial REC: start Incruse daily CXR Should consider using a walker may need to consider evaluating for claudication F/U 3 months Orders: Orders AMB 6 minute walk 08/17/23 R06.02 - Shortness of breath XR chest 2V 08/17/23 R06.02 - Shortness of breath Medications: New umeclidinium 62.5 mcg/actuation (Incruse Ellipta) 1 inh inhalation DAILY 30 ea 11RF 30 days J45.909 - Unspecified asthma, uncomplicated Coding Level of Care Code New Pt Level 4 (97649) Diagnoses Shortness of breath R06.02 CPT Codes Coding ([id number]) Time Spent (min) 35
[2023-08-17 13:53] VITALS: PULSE 75; O2SAT 95
== END 2023-08-17 14:03 | disposition home or self-care (01) ==
PROVIDERS: Visit Provider Hospitalist
DX: R06.02 Shortness of breath (principal)
CPT/HCPCS: 94618; 99204

== ENCOUNTER 2023-08-17 13:18 | Outpatient (REF) | payer MEDICARE, SELFPAY ==
--- NOTE | ~2023-08-17 | XR_ITS ---
EXAMINATION: XR CHEST CLINICAL INFORMATION: Shortness of breath, patient unable to lift left arm for lateral view. COMPARISON: May 21, 2020 TECHNIQUE: 2 views of the chest were obtained. FINDINGS: The lungs are well inflated. There is no gross pneumothorax. Heart size is normal. Redemonstration of large retrocardiac density, possibly representing a hiatal hernia. Mild left basilar opacities asymmetric elevation of the left lung base, possibly representing atelectasis, although an infectious/inflammatory process should also be considered in the appropriate clinical setting. Moderate degenerative changes in the thoracic spine. No gross pleural effusion. XR/XR chest 2V IMPRESSION: 1. Redemonstration of large retrocardiac density, possibly representing a hiatal hernia. CT scan could be considered for further evaluation. 2. Mild left basilar opacities asymmetric elevation of the left lung base, possibly representing atelectasis, although an infectious/inflammatory process should also be considered in the appropriate clinical setting.
== END 2023-08-17 13:19 | disposition home or self-care (01) ==
LOC: HO.XRAY 13:18
PROVIDERS: Visit Provider Hospitalist
DX: R06.02 Shortness of breath (principal)
CPT/HCPCS: 71046; 94618; 99202

== ENCOUNTER 2023-11-02 13:50 | Outpatient (AMB) | payer MEDICARE, SELFPAY ==
[2023-11-02 14:01] VITALS: BP 120/70; PULSE 72; O2SAT 96; BMI 33.3
--- NOTE | 2023-11-02 14:01 | MHC.OFFVIS ---
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 To the point that is hard for her to even go and get her mail at her mailbox. She does use a cane. Denies any chest tightness or wheezing. Denies any coughing. Just breathlessness. She has been seen by Cardiology already. She is on rate-controlling medications and also has been on anticoagulation she has been tolerating it well. She did try to do pulmonary function studies some point and she had a hard time. I also explained to her that we have to be careful with respiratory inhalers because of her cardiac issues. During the visit we did go for brief walking oximetry. It was evident the patient became very fatigued and complained of weakness of her lower extremities along with achiness. Could be an atypical form of claudication. The patient's symptoms did get better after resting while sitting. Seems like she would benefit from a walker. I did talk to the patient and also her daughter about using standing walker instead to minimizing neck strain specially with her bad arthritis of the neck. The patient will consider it. Also, she continues to have the heaviness and weakness and discomfort of the lower extremities while ambulating then should be further evaluated for claudication. In the meantime from a respiratory status will will trial Incruse as an inhaler to see if this provide her some relief. The patient does not have a history of glaucoma and hopefully we can try for a month and see specially since overnight able to do pulmonary function studies. The patient should also have a chest x-ray. Will follow-up in 2 3 months. If she has any issues or concerns she can always call the office for an earlier assessment. 11/02/2023 the patient is here for pulmonary follow-up visit. Overall she is doing about the same. Still complaining of dyspnea on exertion. She is using a cane which is reassuring. The patient did try the Incruse inhaler without any significant improvement. She also had a chest x-ray which I personally reviewed demonstrating a retrocardiac opacity suggesting of a hiatal hernia. The patient denies any reflux symptoms. Although it is barium that she may have a bit size hiatal hernia. She also has some atelectasis and a slightly elevated left hemidiaphragm. We did talk about different options. She can consider getting a CT scan of the chest to further address her underlying symptoms in the abnormal findings on the x-ray overnight also get a barium swallow. Based on discussions the patient decided to move forward getting a barium swallow. The patient will also continue to work on a reflux diet. [facility] Medical History (Updated 11/05/23 @ 20:41 by Maxime Burton MD) GERD (gastroesophageal reflux disease) Shortness of breath Coronary artery arteriosclerosis Osteoarthritis Hypothyroid Paroxysmal A-fib HTN (hypertension) Surgical History History of cardiac cath (~11/2011) Family History Father No problems noted. Mother No problems noted. Brother No problems noted. Social History Alcohol intake: never Patient Tobacco Use Status: Never used Tobacco Review of Systems Const Denies weakness ENT Denies dizziness Card Denies chest pain and Reports dyspnea on exertion Resp Denies cough, Reports dyspnea on exertion and Denies wheezing GI Denies hematochezia and Denies change in stool character Musc Denies abnormal gait, Reports myalgias, Denies muscle cramps, Reports muscle weakness, Denies numbness, Denies radiating pain into limb and Denies tingling Skin/Breast Denies rash Neuro Denies abnormal gait, Denies dizziness, Denies numbness, Denies tingling and Denies weakness Aller/Immun Denies wheezing Physical Exam Vital Signs: Last Vital Signs Pulse 72 11/02/23 14:01 BP 120/70 11/02/23 14:01 Pulse Ox 96 11/02/23 14:01 Oxygen Delivery Method Room Air 11/02/23 14:01 BMI result Body Mass Index 33.3 Const General: healthy appearing and no acute distress Orientation/consciousness: patient oriented x3 HEENT Head: Yes normal to inspection Eyes General: appearance normal, both eyes and all related structures Neck Neck: Yes normal visual inspection Chest Chest palpation & inspection: normal inspection of the chest Resp Effort & Inspection: normal respiratory effort Auscultation: clear to auscultation bilaterally Cardio Rate: regular rate Rhythm: regular rhythm Heart sounds: S1 normal heart sound present, S2 normal heart sound present, no click and Gallop heart sound present GI Inspection: Yes normal to inspection Palpation (GI): Soft to palpation Skin General skin exam: no rashes or lesions noted Neuro General: patient oriented x3 Extrem General: Yes normal to inspection Psych Appearance: grossly normal Assessment & Plan Assessment & Plan (1) Shortness of breath: Code(s): R06.02 - Shortness of breath Category: Medical (2) GERD (gastroesophageal reflux disease): Code(s): K21.9 - Gastro-esophageal reflux disease without esophagitis Category: Medical Qualifiers: Esophagitis presence: with esophagitis Esophagitis bleeding: without hemorrhage Qualified Code(s): K21.00 - Gastro-esophageal reflux disease with esophagitis, without bleeding Plan Likely multifactorial REC: stop Incruse daily PPI reflux diet continue exercise routine F/U 3 months Medications: New omeprazole 20 mg PO DAILY 30 caps 0RF 30 days Discontinued umeclidinium 62.5 mcg/actuation (Incruse Ellipta) Discontinued Reason: Doctor's Order 1 inh inhalation DAILY 30 days 30 ea 11RF J45.909 - Unspecified asthma, uncomplicated Coding Level of Care Code Est Pt Level 4 (42423) Diagnoses Shortness of breath R06.02 Gastroesophageal reflux disease with esophagitis without hemorrhage K21.00 Esophagitis presence: with esophagitis Esophagitis bleeding: without hemorrhage Time Spent (min) 16
== END 2023-11-02 14:26 | disposition home or self-care (01) ==
PROVIDERS: Visit Provider Hospitalist
DX: R06.02 Shortness of breath (principal); K21.00 Gastro-esophageal reflux disease with esophagitis, without bleeding
CPT/HCPCS: 99214

== ENCOUNTER → 2023-11-02 13:50 | Outpatient (BNVA) | payer MEDICARE, SELFPAY | PROVIDERS: Visit Provider Hospitalist | DX: R06.02 Shortness of breath (principal); K21.00 Gastro-esophageal reflux disease with esophagitis, without bleeding | CPT/HCPCS: 99212 ==

== ENCOUNTER 2024-03-12 14:52 | Outpatient (AMB) | payer MEDICARE, SELFPAY ==
[2024-03-12 15:07] VITALS: BP 130/84; PULSE 70; BMI 33.9
--- NOTE | 2024-03-12 15:07 | MHC.OFFVIS ---
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 She has been doing very well. She lives independently still and maintains her activity level. She has some balance issues but has not had any falls. Denies any prolonged palpitation irregular heartbeat. Does have exertional shortness of breath but no worsening symptoms. No orthopnea, PND, leg edema. No exertional chest pain. Takes all her medications regularly. [facility] Medical History (Updated 11/05/23 @ 20:41 by Maxime Burton MD) GERD (gastroesophageal reflux disease) Shortness of breath Coronary artery arteriosclerosis Osteoarthritis Hypothyroid Paroxysmal A-fib HTN (hypertension) Surgical History History of cardiac cath (~11/2011) Family History Father No problems noted. Mother No problems noted. Brother No problems noted. Social History Alcohol intake: never Patient Tobacco Use Status: Never used Tobacco Review of Systems Const Denies chills, Denies fatigue, Denies fever(s), Denies frequent falls, Denies weakness, Denies weight gain and Denies weight loss ENT Denies dizziness Card Denies chest pain, Denies leg edema, Denies lightheadedness, Denies palpitations, Denies dyspnea, Denies dyspnea on exertion, Denies orthopnea and Denies other (loss of consciousness) Resp Denies cough, Denies dyspnea and Denies dyspnea on exertion GI Denies hematochezia and Denies change in stool character Musc Denies abnormal gait, Denies muscle weakness, Denies numbness, Denies radiating pain into limb and Denies tingling Neuro Denies abnormal gait, Denies dizziness, Denies frequent falls, Denies numbness, Denies tingling and Denies weakness Endo Denies fatigue and Denies palpitations Physical Exam Vital Signs: Last Vital Signs Pulse 70 03/12/24 15:07 BP 130/84 03/12/24 15:07 BMI result Body Mass Index 33.9 Const General: cooperative, comfortable, no acute distress, alert and awake Nutritional Appearance: obese Orientation/consciousness: patient oriented x3 Limitations: no limitations Neck Neck: Yes trachea midline, Yes supple and Yes no JVD Resp Effort & Inspection: normal respiratory effort Auscultation: clear to auscultation bilaterally and diminished lung sounds Cardio Jugular venous distension: no JVD Palpation: normal PMI Rate: regular rate Rhythm: regular rhythm Heart sounds: S1 normal heart sound present and S2 normal heart sound present Skin General skin exam: no rashes or lesions noted Neuro General: patient oriented x3 and no focal motor deficits Office Procedures EKG Details: EKG shows normal sinus rhythm with normal EKG [id number], Complete Assessment & Plan Assessment & Plan (1) Paroxysmal A-fib: Comment: CONTROLLED , BEING FOLLOWED BY CARDIOLOGY Code(s): I48.0 - Paroxysmal atrial fibrillation Category: Medical Plan: Paroxysmal atrial fibrillation without any obvious clinical recurrence at this point time. Continue current medical therapy. Continue rhythm control approach. Continue current therapy with Cardizem as well as metoprolol. Prescription history provided. Continue full oral anticoagulation, currently on Eliquis 5 mg b.i.d.. Semi annual renal function test to be pursued. Advised to call me with new symptoms. Avoidance of stimulants was discussed. (2) Coronary artery arteriosclerosis: Comment: mild nonobstructive in 2011 Code(s): I25.10 - Atherosclerotic heart disease of [place] coronary artery without angina pectoris Category: Medical Plan: Coronary atherosclerosis without any new symptoms. Currently on oral anticoagulation Eliquis and therefore would avoid aspirin therapy. Continue aggressive blood pressure control which is currently well optimized advised to monitor blood pressure at home maintain a log. Goal blood pressure less than 130/84. Goal LDL definitely less than 100 mg/dL. Will follow up in the clinic in 1 year's time, sooner p.r.n.. Thank you for allowing me to partake in her care Orders: Orders Basic Metabolic Panel Today I48.0 - Paroxysmal atrial fibrillation Complete Blood Count no Diff Today I48.0 - Paroxysmal atrial fibrillation Medications: Refilled apixaban (Eliquis) 5 mg PO BID 180 tabs 3RF metoprolol succinate ER 50 mg PO BID 180 tabs 3RF Coding Level of Care Code Est Pt Level 4 (48383) Complex EM visit Add On G2211 Diagnoses Paroxysmal A-fib I48.0 Coronary artery arteriosclerosis I25.10 CPT Codes EKG - CPT: [id number], Complete ([id number])
== END 2024-03-12 15:38 | disposition home or self-care (01) ==
PROVIDERS: Visit Provider Internal Medicine Cardiovascular Disease
DX: I48.0 Paroxysmal atrial fibrillation (principal); I25.10 Atherosclerotic heart disease of native coronary artery without angina pectoris
CPT/HCPCS: 93010; 99214; G2211

== ENCOUNTER → 2024-03-12 14:52 | Outpatient (BNVA) | payer MEDICARE, SELFPAY | PROVIDERS: Visit Provider Internal Medicine Cardiovascular Disease | DX: I48.0 Paroxysmal atrial fibrillation (principal); I25.10 Atherosclerotic heart disease of native coronary artery without angina pectoris | CPT/HCPCS: 93005; 99212 ==